=== PATIENT | male | born 1960 | race Caucasian/White ===

== ENCOUNTER 2022-01-17 09:13 | Day surgery (SDC) | payer BC ==
[~2022-01-17] VITALS: Ht 180.3 cm; Wt 65.8 kg
[~2022-01-17 09:13] MED LIST: ASPI-543 PO; ATOR-47 PO; GLYB5TAB8 PO; METF-371 PO; METO25TA93 PO; TICA90TA PO
[2022-01-17] MEDS ORDERED: IODIXANOL 320MG/ML 100ML BTL IV ONE (11:15)
[2022-01-17] MEDS ORDERED: VERAPAMIL 2.5MG/ML INJ 2ML VIAL IV ONE (11:16)
[2022-01-17] MEDS ORDERED: HEPARIN SODIUM (PORCINE) 5000 UNITS/ML 1ML VIAL ONE (11:16)
[2022-01-17] MEDS ORDERED: ANGIOMAX 250 MG VIAL IV ONE (11:16)
[2022-01-17] MEDS ORDERED: SODIUM CHL 0.9% 0 ML ONE (11:17)
[2022-01-17] MEDS ORDERED: fentaNYL CITRATE 100 MCG/2 ML VL ONE (11:17)
[2022-01-17] MEDS ORDERED: MIDAZOLAM HCL 2MG/2ML 2ml VIAL (1mg/ml) ONE (11:17)
== END 2022-01-17 14:00 | disposition home or self-care (01) ==
LOC: CATH 09:13
PROVIDERS: ATTEND Internal Medicine
DX: I25.118 Atherosclerotic heart disease of native coronary artery with other forms of angina pectoris (principal); I25.2 Old myocardial infarction; E78.2 Mixed hyperlipidemia; E11.65 Type 2 diabetes mellitus with hyperglycemia; Z95.5 Presence of coronary angioplasty implant and graft; Z90.89 Acquired absence of other organs; Z98.890 Other specified postprocedural states; Z79.899 Other long term (current) drug therapy; Z87.891 Personal history of nicotine dependence; Z20.822 Contact with and (suspected) exposure to COVID-19
CPT/HCPCS: 93454; C1769; C1887; C1894; J1644; J2250; J3010; Q9967; U0003; 99152